=== PATIENT | female | born 1995 | race Caucasian/White ===

== ENCOUNTER 2019-03-14 21:24 | Emergency (ER) | payer MEDICAID ==
[2019-03-14 21:38] VITALS: BMI 21.6
--- NOTE | 2019-03-14 21:59 | NUR ---
DR ENRIQUE NOTIFIED AND REVIEWED PT's BEHAVIOR AND ASSESSMENT RESULTS, PT IS A LOW RISK PER DR. ENRIQUE. DR ENRIQUE STATED TO GIVE RESOURCES TO PT AT TIME OF DISCHARGE. NO FURTHER ORDERS AT THIS TIME. RESOURCES REVIEWED WITH PT AND SHE VERBALIZED UNDERSTANDING.
[2019-03-14] MEDS ORDERED: TORADOL10 MG PO (22:18)
[2019-03-15 00:06] VITALS: BP 102/63
== END 2019-03-15 00:07 | disposition home or self-care (01) ==
LOC: D.ER 21:24
DX: S09.92XA Unspecified injury of nose, initial encounter (principal); W10.9XXA Fall (on) (from) unspecified stairs and steps, initial encounter; Y93.89 Activity, other specified; Y92.019 Unspecified place in single-family (private) house as the place of occurrence of the external cause; R04.0 Epistaxis